=== PATIENT | male | born 1990 | race Caucasian/White ===

== ENCOUNTER 2016-05-17 20:06 | Inpatient (IN) | payer SELFPAY ==
[2016-05-18] MEDS ORDERED: HYDROCODON-ACE1 EA16 PO (15:05)
== END 2016-05-18 15:50 | DRG 929 ==
LOC: EMR2 20:06 → BURN 22:20
PROVIDERS: ADMIT Surgery
PROC: 0HBEXZZ Excision of Left Lower Arm Skin, External Approach (ICD-10-PCS; principal; 2016-05-17)
PROC: 0HB7XZZ Excision of Abdomen Skin, External Approach (ICD-10-PCS; principal; 2016-05-17)
PROC: 0HBLXZZ Excision of Left Lower Leg Skin, External Approach (ICD-10-PCS; principal; 2016-05-17)
PROC: 0HBGXZZ Excision of Left Hand Skin, External Approach (ICD-10-PCS; principal; 2016-05-17)
PROC: XHRPXL2 Replacement of Skin using Porcine Liver Derived Skin Substitute, External Approach, New Technology Group 2 (ICD-10-PCS; principal; 2016-05-17)
DX: T24.212A Burn of second degree of left thigh, initial encounter (principal); T31.11 Burns involving 10-19% of body surface with 10-19% third degree burns; T22.012A Burn of unspecified degree of left forearm, initial encounter; T20.07XA Burn of unspecified degree of neck, initial encounter; X12.XXXA Contact with other hot fluids, initial encounter; Y93.F1 Activity, caregiving, bathing; Y92.008 Other place in unspecified non-institutional (private) residence as the place of occurrence of the external cause; Z72.0 Tobacco use
CPT/HCPCS: J2250; J2270; J3010; Q4136

== ENCOUNTER 2016-05-23 12:27 | Emergency (ER) | payer SELFPAY ==
[~2016-05-23 12:27] MED LIST: HYDROCODON-ACE1 EA16 PO
[2016-05-23] MEDS ORDERED: NORCO 5-325 TA1 EACH PO (15:53)
== END 2016-05-23 16:02 ==
LOC: EDMED 12:27
DX: T22.052A Burn of unspecified degree of left shoulder, initial encounter (principal); T23.072A Burn of unspecified degree of left wrist, initial encounter; T24.012A Burn of unspecified degree of left thigh, initial encounter; T31.0 Burns involving less than 10% of body surface; F31.9 Bipolar disorder, unspecified; F90.9 Attention-deficit hyperactivity disorder, unspecified type; F17.210 Nicotine dependence, cigarettes, uncomplicated; X08.8XXA Exposure to other specified smoke, fire and flames, initial encounter